=== PATIENT | female | born 1965 | race Caucasian/White ===

== ENCOUNTER → 2016-06-05 | Outpatient (CLI) | payer OTHER ==
[~2016-06-05] MED LIST: ALBU1AER9; FLUO20CA35 PO; SIMV20TA2 PO
[2016-06-05 13:05] LABS: ALT/SGPT 24 U/L (12-78); BLOOD UREA NITROGEN 19 mg/dl (7-18); BUN/CREATININE RATIO 27.6 (10-20); CALCIUM 8.8 mg/dl (8.5-10.1); CARBON DIOXIDE 24 mmol/L (21-32); CHLORIDE 104 mmol/L (98-107); CHOLESTEROL 234 mg/dl (0-200); ESTIMATED AVERAGE GLUCOSE 177 mg/dl; GLUCOSE 191 mg/dl (70-99); HA1C FLAG Normal (Normal); POTASSIUM 4.1 mmol/L (3.5-5.1); SODIUM 138 mmol/L (136-145); TRIGLYCERIDES 152 mg/dl (0-150); VERY LOW DENSITY LIPOPROT CALC 30 mg/dl
[2016-06-05 13:16] LABS: ALB/GLOB RATIO 0.9 (0.9-2); ALKALINE PHOSPHATASE 99 U/L (45-117); AST/SGOT 14 U/L (15-37); CHOLESTEROL/HDL RATIO 4.9; HDL CHOLESTEROL 48 mg/dl; LDL CHOLESTEROL CALCULATED 156 mg/dl
== END | disposition home or self-care (01) ==
LOC: C.LABBFT 11:20
PROVIDERS: ATTEND Internal Medicine
DX: E11.65 Type 2 diabetes mellitus with hyperglycemia (principal)

== ENCOUNTER → 2016-11-15 | Outpatient (CLI) | payer OTHER ==
[2016-11-15 12:33] LABS: ESTIMATED AVERAGE GLUCOSE 157 mg/dl; HA1C FLAG Normal (Normal)
[2016-11-15 12:56] LABS: ALT/SGPT 23 U/L (12-78); BLOOD UREA NITROGEN 24 mg/dl (7-18); BUN/CREATININE RATIO 37.2 (10-20); CALCIUM 8.9 mg/dl (8.5-10.1); CARBON DIOXIDE 26 mmol/L (21-32); CHLORIDE 105 mmol/L (98-107); CHOLESTEROL 239 mg/dl (0-200); CREATININE 0.65 mg/dl (0.60-1.20); GLUCOSE 121 mg/dl (70-99); SODIUM 141 mmol/L (136-145); TRIGLYCERIDES 201 mg/dl (0-150); VERY LOW DENSITY LIPOPROT CALC 40 mg/dl
[2016-11-15 13:07] LABS: ALKALINE PHOSPHATASE 81 U/L (45-117); AST/SGOT 12 U/L (15-37); CHOLESTEROL/HDL RATIO 6.3; HDL CHOLESTEROL 38 mg/dl; LDL CHOLESTEROL CALCULATED 161 mg/dl
== END | disposition home or self-care (01) ==
LOC: C.LABBFT 07:52
PROVIDERS: ATTEND Physician Assistant Medical
DX: E78.5 Hyperlipidemia, unspecified (principal); E03.9 Hypothyroidism, unspecified

== ENCOUNTER → 2017-05-01 | Outpatient (CLI) | payer OTHER ==
[2017-05-01 18:13] LABS: ALT/SGPT 23 U/L (12-78); AST/SGOT 11 U/L (15-37); BLOOD UREA NITROGEN 19 mg/dl (7-18); BUN/CREATININE RATIO 26.4 (10-20); CALCIUM 8.6 mg/dl (8.5-10.1); CARBON DIOXIDE 28 mmol/L (21-32); CHLORIDE 104 mmol/L (98-107); CREATININE 0.72 mg/dl (0.60-1.20); GLUCOSE 132 mg/dl (70-99); HDL CHOLESTEROL 52 mg/dl; POTASSIUM 4.1 mmol/L (3.5-5.1); SODIUM 136 mmol/L (136-145)
[2017-05-01 18:25] LABS: ALB/GLOB RATIO 0.9 (0.9-2); ALKALINE PHOSPHATASE 93 U/L (45-117); CHOLESTEROL 259 mg/dl (0-200); LDL CHOLESTEROL CALCULATED 167 mg/dl; TRIGLYCERIDES 200 mg/dl (0-150); VERY LOW DENSITY LIPOPROT CALC 40 mg/dl
[2017-05-02 07:17] LABS: ESTIMATED AVERAGE GLUCOSE 157 mg/dl; HA1C FLAG Normal (Normal)
== END | disposition home or self-care (01) ==
LOC: C.LABBFT 12:04
PROVIDERS: ATTEND Internal Medicine
DX: E78.5 Hyperlipidemia, unspecified (principal); E03.9 Hypothyroidism, unspecified

== ENCOUNTER → 2018-01-13 | Outpatient (CLI) | payer OTHER ==
[2018-01-13 13:03] LABS: BASO % 0.4 %; BASO ABS # 0.03 K/uL (0-0.2); EOS % 2.9 %; EOS ABS # 0.22 K/uL (0-0.5); HEMATOCRIT 41.6 % (37-47); HEMOGLOBIN 13.4 g/dL (12.0-16.0); IG# 0.02 K/uL (0.00-0.02); LYMPH % 29.9 %; LYMPH ABS # 2.25 K/uL (1.2-3.4); MEAN CELL VOLUME 84.9 fL (80-100); MEAN CORPUSCULAR HEMOGLOBIN 27.3 pg (25-34); MEAN CORPUSCULAR HGB CONC 32.2 g/dl (32-36); MEAN PLATELET VOLUME 11.9 fL (7.4-10.4); MONO % 8.4 %; MONO ABS # 0.63 K/uL (0.11-0.59); NEUT % 58.1 %; NEUT ABS # 4.37 K/uL (1.4-6.5); PLATELET COUNT 224 K/uL (130-400); RED CELL DISTRIBUTION WIDTH CV 13.8 % (11.5-14.5); RED CELL DISTRIBUTION WIDTH SD 42.8 fL (36.4-46.3); WHITE BLOOD COUNT 7.52 K/uL (4.8-10.8)
[2018-01-13 13:44] LABS: ALBUMIN 3.4 gm/dl (3.4-5.0); ALKALINE PHOSPHATASE 105 U/L (45-117); ALT/SGPT 22 U/L (12-78); AST/SGOT 14 U/L (15-37); BLOOD UREA NITROGEN 18 mg/dl (7-18); CALCIUM 8.7 mg/dl (8.5-10.1); CARBON DIOXIDE 27 mmol/L (21-32); CHOLESTEROL 214 mg/dl (0-200); CREATININE 0.69 mg/dl (0.60-1.20); GLUCOSE 201 mg/dl (70-99); LDL CHOLESTEROL CALCULATED 114 mg/dl; POTASSIUM 3.7 mmol/L (3.5-5.1); SODIUM 136 mmol/L (136-145); TOTAL PROTEIN 7.2 gm/dl (6.4-8.2)
== END | disposition home or self-care (01) ==
LOC: C.LABBFT 10:23
PROVIDERS: ATTEND Internal Medicine
DX: E11.65 Type 2 diabetes mellitus with hyperglycemia (principal)